=== PATIENT | female | born 1925 | race Caucasian/White ===

== ENCOUNTER 2017-04-03 09:56 | Inpatient (IN) | payer OTHER ==
[~2017-04-03] VITALS: Ht 160 cm; Wt 49.9 kg
--- NOTE | ~2017-04-03 | H ---
[facility] [place] [address] HISTORY AND PHYSICAL Name: CARRI HASKINS Room #: 460-P ADM IN M.R.#: [id number] Admission: 04/03/17 Attend Phys: Mars Velasquez MD Discharge: Date of : [birth year] Report #: [id number] THIS REPORT FOR: //name// CC: Mars Keenan Ronni DATE OF SERVICE: 04/03/2017 CHIEF COMPLAINT: Shortness of breath. HISTORY OF PRESENT ILLNESS: The patient is an 89-year-old female from [facility] sent to the emergency room today with shortness of breath. She really cannot give any details of the history, is a poor historian and somewhat forgetful, but all the information was obtained from reviewing the record from ER. There was report of fever with nausea, vomiting and altered mental status that began about 2 days ago. Facility noted that she was somewhat more short of breath subjectively and was requiring oxygen. She does have a history of atrial fibrillation and sleep apnea. There have been no reports of edema or significant weight change. The patient really does not offer any complaints and not quite sure why she is at the hospital. PAST MEDICAL HISTORY: Hypertension, dyslipidemia, atrial fibrillation, GERD, history of TIA and CVA, bradycardia, sleep apnea, pacemaker. PAST SURGICAL HISTORY: Unknown. FAMILY HISTORY: Noncontributory. SOCIAL HISTORY: She has lived at the care facility for a number of years. No known chronic alcohol or tobacco use. ALLERGIES: ALENDRONATE, CHLORPHENIRAMINE, NASONEX, PHENAZOPYRIDINE, SULFA, NEXIUM. MEDICATIONS: Digoxin, Coumadin, calcium, diltiazem, cranberry, multivitamin, Claritin, Prilosec, calcium, Lasix, lisinopril, multivitamin, potassium, fenofibrate, Zocor. REVIEW OF SYSTEMS: She really cannot follow review. She is pleasantly confused, but in no distress. OBJECTIVE: VITAL SIGNS: Temperature 36.7, pulse 80, respirations 24, blood pressure 110/49, O2 sat 97% on 2 liters nasal cannula. GENERAL: She is an elderly female who is awake and alert. HEAD AND NECK: Unremarkable. [facility] [address] [address] HISTORY AND PHYSICAL Name: CARRI HASKINS Room #: 460-[facility] IN [facility]#: [id number] Admission: 04/03/17 Attend Phys: Mars Velasquez MD Discharge: Date of : 10/[birth year] Report #: [id number] LUNGS: Clear anteriorly. HEART: Irregular. No murmur. ABDOMEN: Scaphoid, soft, normoactive bowel sounds. EXTREMITIES: No edema. NEUROLOGIC: She has muscle atrophy throughout, signs of cachexia. LABORATORY DATA: Urinalysis had 3+ blood, leukocyte esterase, white cells, red cells and bacteria. ABG was reviewed. White count is 1.4 with 27% bands. INR is 3.6. Creatinine is 1, digoxin was 1.6, albumin 3.2. ASSESSMENT: 1. Sepsis syndrome. 2. Possible pyelonephritis. 3. Healthcare-associated pneumonia. 4. Atrial fibrillation, chronic. 5. Anticoagulation, chronic. 6. Protein-calorie malnutrition mild. PLAN: She initially was briefly requiring BiPAP and this seems to have stabilized. Dr. Levine has assessed her. Dr. Dyllan Barajas has assessed her too. It is possible that the urinary source may be the cause of her sepsis picture. At this point, given her advanced age and DNR status, we will treat medically and not pursue ICU or sepsis protocol intervention. She seems to have stabilized so far with supportive measures. Additional studies have been requested as well. There may be an issue with pulmonary edema. <ELECTRONICALLY SIGNED> By: Mars Velasquez MD 04/04/17 0957 1709 1748 Mars Velasquez MD /nt
--- NOTE | ~2017-04-03 | HC ---
[facility] [place] [address] CONSULTATION Name: CARRI HASKINS Room #: 460-P ADM IN M.R.#: [id number] Admission: 04/03/17 Attend Phys: Mars Velasquez MD Discharge: Date of : 10/[birth year] Report #: [id number] THIS REPORT FOR: //name// CC: Mars Keenan Ronni DATE OF SERVICE: 04/03/2017 REASON FOR CONSULTATION: Healthcare-associated pneumonia. IMPRESSION: 1. Healthcare-associated pneumonia. 2. Sepsis. 3. Urinary tract infection versus pyelonephritis. 4. Atrial fibrillation. 5. Leukopenia. PLAN: Discussed with Dr. Velasquez, will assess fluids and antibiotics on floor. The patient has advanced directive. We will follow closely with you. DVT and ulcer prophylaxis will be done. HISTORY OF PRESENT ILLNESS: An 89-year-old female transferred from [facility] with progressive shortness of breath. The patient is difficult historian. The patient also with nausea, vomiting and altered mental status. PAST MEDICAL HISTORY: Include hypertension, atrial fib, GERD, obstructive sleep apnea, pacemaker, TIA, CVA. SURGERIES: None known. FAMILY HISTORY: Unknown. REVIEW OF SYSTEMS: Include hypertension, hyperlipidemia, AFib, GERD, TIA, CVA, bradycardia. SOCIAL HISTORY: Negative tobacco, negative current ETOH. PHYSICAL EXAMINATION: VITAL SIGNS: Temperature 36.8, pulse 92, respirations 30, BP 142/61. LUNGS: Decreased. HEART: Irregular. ABDOMEN: Bowel sounds present, soft, mild tender. EXTREMITIES: Showed no clubbing. Moved all extremities. ALLERGIES: FOSAMAX, CHLORPHENIRAMINE, NASONEX, PHENAZOPYRIDINE, SULFA, NEXIUM. [facility] [address] [place] [address] CONSULTATION Name: CARRI HASKINS Room #: 460-P ADM IN M.R.#: [id number] Admission: 04/03/17 Attend Phys: Mars Velasquez MD Discharge: Date of : 10/[birth year] Report #: [id number] MEDICATIONS: Included digoxin, warfarin, calcium, diltiazem, loratadine, omeprazole, Lasix, fenofibrate. LABORATORY DATA: BUN 18, creatinine 1. Chest x-ray showed bilateral infiltrates, pH 7.413, pCO2 of 43, pO2 of 67 on 3.5 liters. White count 1.4, hemoglobin 14.7, digoxin 1.6. INR 3.6. CT stone protocol, dense consolidation with air bronchograms, dependent lower lobes, small effusions, bilateral renal cysts. By: 1959 0116 Alexandrea Levine MD /nt
--- NOTE | ~2017-04-03 | HC ---
[facility] [place] [address] CONSULTATION Name: CARRI HASKINS Room #: 460-P ADM IN M.R.#: [id number] Admission: 04/03/17 Attend Phys: Mars Velasuqez MD Discharge: Date of : 10/[birth year] Report #: [id number] THIS REPORT FOR: //name// CC: Mars Cheungva INFECTIOUS DISEASE CONSULTATION REASON FOR CONSULTATION: I was asked to evaluate concerning fever, neutropenia with left shift with associated nausea, vomiting and confusion. HISTORY OF PRESENT ILLNESS: The patient was unable to give me significant details, just stated that she did not feel well. She was unaware that she was in the hospital. She thought she was still at [facility]. Nursing reports nausea, vomiting and diarrhea for the last 2 days. No definite cough or sputum production. The patient has been voiding. Poor appetite. At presentation, she is on 2 liters of oxygen with a temperature of 36.8, pulse is 66 and blood pressure 121/61. She was in atrial fibrillation. Urinalysis showed pyuria and bacteriuria. She was placed on IV antibiotics after blood and urine cultures were obtained. PAST MEDICAL HISTORY: Hypertension, hyperlipidemia, atrial fibrillation, gastroesophageal reflux, TIA, obstructive sleep apnea, permanent pacemaker and pectus excavatum. ALLERGIES: FOSAMAX, CHLORPHENIRAMINE, NASONEX, PHENAZOPYRIDINE, SULFA and NEXIUM. MEDICATIONS: As noted on her MAR, now on Zosyn and Levaquin. FAMILY HISTORY: Noncontributory. SOCIAL HISTORY: Nonsmoker. No significant alcohol intake. [facility]. REVIEW OF SYSTEMS: She reports no headache, cough or sputum. She does have some upper abdominal discomfort. No back or flank pain, unclear about stool output. She denies any dysuria. She is incontinent of both bowel and bladder. PHYSICAL EXAMINATION: VITAL SIGNS: Currently, afebrile, hemodynamically stable on 2 liters of oxygen per nasal cannula. HEENT: Unremarkable. GENERAL: She was alert and cooperative and pleasant. She was in no distress, lying in bed. She had difficulty rolling over in bed. The patient was [address] [address] CONSULTATION Name: CARRI HASKINS Room #: 460-[facility] IN [facility]#: [id number] Admission: 04/03/17 Attend Phys: Mars Velasquez MD Discharge: Date of : 10[birth year] Report #: [id number] cachectic. She had a significant pectus excavatum. LUNGS: Few crackles in the bases bilaterally. HEART: Regular, without appreciable murmur. ABDOMEN: Firm. Mild tenderness in the right upper quadrant. No hepatosplenomegaly or mass appreciated. GENITOURINARY: External genitalia unremarkable. EXTREMITIES: Unremarkable. No decubitus or rash. LABORATORY DATA: Sodium 141, potassium 3.6, bicarbonate 31 and creatinine 1. Liver function test normal. Hemoglobin 14.7, platelet count 245,000, WBC 1.4 with 41% segs and 27% bands. Chest x-ray, bilateral infiltrates consistent with edema. Urinalysis positive for WBCs and bacteria. IMPRESSION AND PLAN: An 89-year-old jail resident with suspected urinary tract infection. Although blood pressure has maintained, she is septic with change in mental status, marked left shift. She does have underlying atrial fibrillation. She has hypoxia, responding now to 2 liters of oxygen per nasal cannula. Still possible aspiration pneumonia could be playing a part of this. Recommend continuing antibiotic coverage for healthcare-associated organisms. Moura catheter to ensure adequate drainage. Await blood and urine cultures. Noncontrast CT scan of the abdomen to ensure no ureteral obstruction or other complications intra-abdominal. <ELECTRONICALLY SIGNED> By: Dyllan Barajas MD 04/04/17 0905 1605 [id number] Dyllan Barajas MD /nt
--- NOTE | ~2017-04-03 | S ---
[facility] [place] [address] SURGICAL PATH RPT PROCEDURE Name: CARRI HASKINS Room #: 460-P ADM IN M.R.#: [id number] Admission: 04/03/17 Date of : [birth year] Discharge: Report #: [id number] Path Case #: [id number] PATHOLOGY REPORT COLLECTION DATE: 04/03/2017 RECEIVED DATE: 04/03/2017 SUBMITTING PHYS: Dr. Alexandrea Levine OTHER PHYS: Dr. Mars Rae SPECIMEN(S) RECEIVED: A.Peripheral smear * * * * * * * * * * * * FINAL DIAGNOSIS: Peripheral blood smear: - Moderate leukopenia. (See comment) COMMENT: Overall the peripheral blood has moderate leukopenia. Hemoglobin and platelet counts are within the normal reference ranges. Focal abnormal nuclear lobation and bandemia are noted. There is no significant left shift. The etiology of the findings is unclear based entirely on slide review. Possible etiologies include reactive conditions such as infections and/or drug reactions or primary bone marrow disorders. Correlation with clinical history and additional laboratory data is recommended. (CLW:estefany; d/t: 04/03/2017) PATHOLOGIST: Louise Thomas M.D. REPORT ELECTRONICALLY SIGNED BY: Louise Thomas M.D. DATE/TIME: 04/03/2017 16:24 * * * * * * * * * * * * MICROSCOPIC DESCRIPTION: CBC DATA (04/03/17): WBC: 1,400/uL; RBC: 4.48; Hgb: 14.7 g/dL; Hct: 43.5%; MCV: 97.0 fL; MCH: 32.8 pg; MCHC: 33.8%; RDW: 13.3%; platelets: 245,000 /uL. Manual white blood cell differential: segs - 41%, bands - 27%, lymphs - 24%, monos - 6%, eos - 2%. Peripheral blood smear: Cytomorphological examination of the Balderas's-stained peripheral blood smear confirms the provided data. Red blood cells are normocytic to mildly macrocytic and are without significant anisopoikilocytosis. White blood cells are moderately decreased in number. They are predominantly segmented neutrophils with focal abnormal nuclear lobation and band forms present. There is no [address] [address] SURGICAL PATH RPT PROCEDURE Name: CARRI HASKINS Room #: 460-P ADM IN M.R.#: [id number] Admission: 04/03/17 Date of : [birth year] Discharge: Report #: [id number] Path Case #: [id number] significant left shift. No blasts or Carrie rods are identified. Lymphocytes are predominantly small, round and mature-appearing with condensed chromatin and scant cytoplasm with admixed large granular lymphocytes. On scanning, no markedly atypical lymphoid cells are seen. Monocytes are mature. Platelets are adequate in number and mainly normal in morphology with rare larger platelets noted. GROSS PATHOLOGY: A peripheral smear is submitted for review. CLINICAL HISTORY: 89-year-old woman with leukopenia. Morphologic review of the peripheral blood smear is requested by the patient's physician. INITIAL CPT CODE(S): A; [place] Professional services performed by [facility] at [facility] [address] [place] [address] Technical services performed by [facility] at [address] [place] [address], [facility] [address], [place] [address]. [facility] [address] [place] [address] PHONE: [phone] DIRECTOR: Enrique Jay M.D. * * * END OF REPORT * * *
--- NOTE | ~2017-04-03 | EKG ---
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
[2017-04-03 09:56] VITALS: BP 121/61
[~2017-04-03 09:56] MED LIST: CALCIUM 600 +1 EAC5 PO; COUMADIN 2.5MG2.5 M1 PO; DILTIAZEM ER120 M1 PO; FUROSEMIDE 20 M20 M1 PO; K-DUR 20 MEQ T20 MEQ PO; LANOXIN 0.250.25 M1 PO; MULTIVITAMINS1 EAC7 PO; PRESERVISION T1 EACH PO; RANITIDINE 150150 MG PO; SYSTANE 0.3-0.1 EACH OP; TRICOR48 MG PO; TUMS PO; ZESTRIL5 MG PO; ZOCOR 10 MG TAB10 M1 PO
[2017-04-03 10:31] LABS: HEMATOCRIT 43.5 % (37.0-47.0); HEMOGLOBIN 14.7 gm/dL (12.0-15.0); MCH 32.8 pg (26.0-34.0); MCHC 33.8 g/dL (28.0-37.0); PLATELET COUNT 245 thou/uL (150-400); RBC 4.48 mil/uL (4.20-5.00); RDW 13.3 % (10.5-14.5)
[2017-04-03 10:33] LABS: MANUAL DIFF YES; WBC 1.4 thou/uL (4.0-11.0)
[2017-04-03 10:44] LABS: CALCIUM 9.8 mg/dL (8.5-10.1); POTASSIUM 3.6 mmol/L (3.5-5.1)
[2017-04-03 10:49] LABS: ALBUMIN 3.2 g/dL (3.4-5.0); TOTAL BILIRUBIN 0.6 mg/dL (<0.1-1.0); TOTAL PROTEIN 6.3 g/dL (6.4-8.2); TROPONIN-I 0.07 ng/mL (<0.04-0.07)
[2017-04-03 11:07] LABS: URINE BILIRUBIN 1+ (Negative); URINE BLOOD 3+ (Negative); URINE COLOR YELLOW; URINE GLUCOSE-RANDOM* NEGATIVE (Negative); URINE KETONES TRACE (Negative); URINE NITRITE NEGATIVE (Negative); URINE PROTEIN (DIPSTICK) 2+ (Negative); URINE SPECIFIC GRAVITY 1.025 (1.003-1.035)
[2017-04-03 11:14] LABS: ABG SAMPLE TYPE ARTERIAL; BE(vivo) 2.1 mmol/L (-2 to +3); LACTATE 1.98 mmol/L (0.5-2.0); O2(CT) 19.3 mL/dL (15.0-23.0); O2Hb 92.1 % (92.0-98.0); PCO2 43.3 mmHg (35.0-45.0); PO2 67.3 mmHg (80.0-100.0); STICK SITE L.BRACHIAL; pH 7.413 (7.360-7.450); sO2 93.6 % (92.0-98.0); tCO2 28.3 mmol/L (24.0-30.0)
[2017-04-03 11:28] LABS: ICTOTEST (BILI CONFIRMATORY) Negative (Negative)
[2017-04-03 11:35] LABS: SQUAMOUS 0-3 Few /LPF (0-3)
[2017-04-03 11:36] LABS: BACTERIA >30 Many /HPF (None Seen); CASTS None Seen /LPF (None Seen); CRYSTALS None Seen /LPF (None Seen); URINE RBC 3-10 Few /HPF (0-2); URINE WBC >25 Many /HPF (0-5)
[2017-04-03 11:39] LABS: TOTAL CELL COUNT 100
[2017-04-03 11:43] LABS: ANISOCYTOSIS 1+
[2017-04-03 13:26] VITALS: BP 115/57
[2017-04-03 14:00] VITALS: BP 110/49
[2017-04-03] MEDS ORDERED: CRANBERRY200 MG PO (14:11)
[2017-04-03] MEDS ORDERED: CLARITIN10 MG PO (14:12)
[2017-04-03] MEDS ORDERED: OMEPRAZOLE20 M2 PO (14:12)
[2017-04-03] MEDS ORDERED: ICAPS MV TABLE1 EAC1 PO (14:12)
[2017-04-03] MEDS ORDERED: PAIN RELIEVER500 M3 PO (14:13)
[2017-04-03 16:38] LABS: INR 3.6; PROTIME 37.5 Seconds (9.3-11.4)
[2017-04-03 16:40] VITALS: BP 128/71
[2017-04-03 20:13] VITALS: BP 100/49
[2017-04-03 23:34] VITALS: BP 100/54
[2017-04-04 03:34] VITALS: BP 112/50
[2017-04-04 06:54] LABS: HEMATOCRIT 36.4 % (37.0-47.0); MCH 32.9 pg (26.0-34.0); MCHC 34.3 g/dL (28.0-37.0); MCV 95.9 fL (80.0-100.0); PLATELET COUNT 186 thou/uL (150-400); RBC 3.79 mil/uL (4.20-5.00); RDW 13.3 % (10.5-14.5)
[2017-04-04 06:58] LABS: MANUAL DIFF YES
[2017-04-04 07:01] LABS: HEMOGLOBIN 12.5 gm/dL (12.0-15.0); WBC 8.8 thou/uL (4.0-11.0)
[2017-04-04 07:07] LABS: INR 4.4; PROTIME 45.8 Seconds (9.3-11.4)
[2017-04-04 07:16] LABS: CALCIUM 9.4 mg/dL (8.5-10.1); CREATININE 0.8 mg/dL (0.6-1.0); POTASSIUM 3.9 mmol/L (3.5-5.1)
[2017-04-04 08:00] VITALS: BP 105/71
[2017-04-04 08:03] VITALS: BP 128/50
[2017-04-04 08:41] LABS: ABSOLUTE NEUTROPHILS 7.5 thou/uL (1.4-8.2); ATYPICAL LYMPHS 1 %; METAMYELOCYTES 6 %; TOTAL CELL COUNT 100
[2017-04-04 08:42] LABS: ANISOCYTOSIS SLIGHT
[2017-04-04 16:00] VITALS: BP 124/48
[2017-04-04 19:16] VITALS: BP 102/43
[2017-04-05 03:41] VITALS: BP 120/55
[2017-04-05 06:02] LABS: HEMATOCRIT 31.4 % (37.0-47.0); MCH 33.1 pg (26.0-34.0); MCHC 35.2 g/dL (28.0-37.0); MCV 94.2 fL (80.0-100.0); PLATELET COUNT 160 thou/uL (150-400); RBC 3.33 mil/uL (4.20-5.00); RDW 13.5 % (10.5-14.5); WBC 13.8 thou/uL (4.0-11.0)
[2017-04-05 06:06] LABS: MANUAL DIFF YES
[2017-04-05 06:09] LABS: PROTIME 31.1 Seconds (9.3-11.4)
[2017-04-05 06:19] LABS: CALCIUM 9.3 mg/dL (8.5-10.1); CREATININE 0.8 mg/dL (0.6-1.0); POTASSIUM 3.5 mmol/L (3.5-5.1)
[2017-04-05 07:57] LABS: ABSOLUTE NEUTROPHILS 12.6 thou/uL (1.4-8.2); TOTAL CELL COUNT 100
[2017-04-05 08:04] LABS: ANISOCYTOSIS SLIGHT
[2017-04-05 10:00] VITALS: BP 109/55
[2017-04-05 11:39] VITALS: BP 125/50
[2017-04-05 16:45] VITALS: BP 123/55
[2017-04-05 17:48] VITALS: BP 120/58
[2017-04-05 19:37] VITALS: BP 111/46
[2017-04-06 04:20] VITALS: BP 119/48
[2017-04-06 05:40] LABS: HEMATOCRIT 31.4 % (37.0-47.0); HEMOGLOBIN 10.8 gm/dL (12.0-15.0); MCH 32.8 pg (26.0-34.0); MCHC 34.3 g/dL (28.0-37.0); MCV 95.6 fL (80.0-100.0); PLATELET COUNT 165 thou/uL (150-400); RBC 3.29 mil/uL (4.20-5.00); RDW 13.3 % (10.5-14.5)
[2017-04-06 05:48] LABS: INR 2.5; PROTIME 25.6 Seconds (9.3-11.4)
[2017-04-06 05:49] LABS: CALCIUM 9.7 mg/dL (8.5-10.1); CREATININE 0.6 mg/dL (0.6-1.0); POTASSIUM 3.6 mmol/L (3.5-5.1)
[2017-04-06 05:57] LABS: MANUAL DIFF YES
[2017-04-06 07:30] LABS: ABSOLUTE NEUTROPHILS 12.2 thou/uL (1.4-8.2); TOTAL CELL COUNT 100
[2017-04-06 08:19] VITALS: BP 131/60
[2017-04-06] MEDS ORDERED: DUONEB 2.5-0.5 M3 ML INH (13:15)
[2017-04-06] MEDS ORDERED: AUGMENTIN 875-1 EACH PO (13:15)
[2017-04-06] MEDS ORDERED: COUMADIN 1MG TAB1 M1 PO (13:16)
[2017-04-06] MEDS ORDERED: ACETAMINOPHEN325 M1 PO (13:16)
[2017-04-06 14:40] VITALS: BP 137/61
== END 2017-04-06 16:00 | DRG 871 ==
LOC: ER 09:56 → EROBS 11:45 → 4W 11:45 → 4S 13:28 → 4W 16:14
PROVIDERS: Internal Medicine Geriatric Medicine; Nurse Practitioner Family; Specialist
PROC: 5A09357 Assistance with Respiratory Ventilation, Less than 24 Consecutive Hours, Continuous Positive Airway Pressure (ICD-10-PCS; principal; 2017-04-03)
DX: A41.9 Sepsis, unspecified organism (principal); J18.9 Pneumonia, unspecified organism; J96.91 Respiratory failure, unspecified with hypoxia; N39.0 Urinary tract infection, site not specified; E44.1 Mild protein-calorie malnutrition; Z68.1 Body mass index [BMI] 19.9 or less, adult; I48.2 Chronic atrial fibrillation; F32.9 Major depressive disorder, single episode, unspecified; I10 Essential (primary) hypertension; Y95 Nosocomial condition; G47.30 Sleep apnea, unspecified; E78.5 Hyperlipidemia, unspecified; K21.9 Gastro-esophageal reflux disease without esophagitis; B96.1 Klebsiella pneumoniae [K. pneumoniae] as the cause of diseases classified elsewhere; B96.20 Unspecified Escherichia coli [E. coli] as the cause of diseases classified elsewhere; Z88.2 Allergy status to sulfonamides; Z88.8 Allergy status to other drugs, medicaments and biological substances; Z86.73 Personal history of transient ischemic attack (TIA), and cerebral infarction without residual deficits; Z95.0 Presence of cardiac pacemaker; Z79.01 Long term (current) use of anticoagulants; Z79.899 Other long term (current) drug therapy
CPT/HCPCS: 10045